=== PATIENT | female | born 1965 | race Caucasian/White ===

== ENCOUNTER 2022-12-16 19:12 | Emergency (ER) | payer MEDICAID ==
[2022-12-16] MEDS ORDERED: Diphtheria,Pertussis(Acell),Tetanus Vaccine 0.5 ML Syringe IM ONE (19:53)
[2022-12-16] MEDS ORDERED: Lidocaine/Epineph/Tetracaine 3 ML Syringe TOP STA (19:54)
[2022-12-16] MEDS ORDERED: hydrOXYzine HCl 25 MG Tab PO STA (19:54)
[2022-12-16] MEDS ORDERED: Acetaminophen 500 MG Tab PO STA (19:54)
== END 2022-12-16 23:00 | disposition home or self-care (01) ==
LOC: MW.ED 19:12
DX: S52.125A Nondisplaced fracture of head of left radius, initial encounter for closed fracture (principal); S01.01XA Laceration without foreign body of scalp, initial encounter; I10 Essential (primary) hypertension; Z23 Encounter for immunization; V18.0XXA Pedal cycle driver injured in noncollision transport accident in nontraffic accident, initial encounter
CPT/HCPCS: 12002; 29105; 73080; 90471; 90715; 99283; A9270

== ENCOUNTER 2024-08-29 14:38 | Emergency (ER) | payer MEDICAID | END 2024-08-29 16:11 | disposition home or self-care (01) | LOC: MW.ED 14:38 | DX: L03.213 Periorbital cellulitis (principal); I10 Essential (primary) hypertension; Z86.16 Personal history of COVID-19; Z79.899 Other long term (current) drug therapy; Z88.0 Allergy status to penicillin; Z88.1 Allergy status to other antibiotic agents; Z88.2 Allergy status to sulfonamides; Z75.8 Other problems related to medical facilities and other health care | CPT/HCPCS: 99283 ==

== ENCOUNTER 2024-10-15 14:36 | Emergency (ER) | payer MEDICAID | END 2024-10-15 17:53 | disposition home or self-care (01) | LOC: MW.ED 14:36 | DX: T78.40XA Allergy, unspecified, initial encounter (principal); I10 Essential (primary) hypertension; Z88.1 Allergy status to other antibiotic agents; Z88.8 Allergy status to other drugs, medicaments and biological substances; Z79.899 Other long term (current) drug therapy; Z75.8 Other problems related to medical facilities and other health care | CPT/HCPCS: 99282; 99283 ==

== ENCOUNTER 2025-06-02 13:24 | Emergency (ER) | payer SELFPAY ==
[2025-06-02] MEDS: Ketorolac 30 MG/ML SDV IM ONE (15:59)
== END 2025-06-02 16:28 | disposition home or self-care (01) ==
LOC: MW.ED 13:24
DX: S76.011A Strain of muscle, fascia and tendon of right hip, initial encounter (principal); R10.31 Right lower quadrant pain; M16.0 Bilateral primary osteoarthritis of hip; I10 Essential (primary) hypertension; Z88.0 Allergy status to penicillin; Z88.2 Allergy status to sulfonamides; Z88.8 Allergy status to other drugs, medicaments and biological substances; Z79.899 Other long term (current) drug therapy; X50.0XXA Overexertion from strenuous movement or load, initial encounter; Y93.89 Activity, other specified
CPT/HCPCS: 73502; 96372; 99283; A9270; J1885; J8540